=== PATIENT | female | born 2000 | race Caucasian/White ===

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

== ENCOUNTER 2020-10-12 19:26 | Emergency (ER) | payer OTHER ==
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
[2020-10-12] MEDS ORDERED: AZITHROMYCIN 500 MG TAB PO STA (22:35)
[2020-10-12] MEDS ORDERED: metroNIDAZOLE 500 MG TAB PO STA (22:35)
[2020-10-12] MEDS ORDERED: cefTRIAXone 1,000 MG VIAL (IM USE) IM STA (22:35)
[2020-10-12] MEDS ORDERED: levonorgestreL 1.5 MG TABLET PO STA (22:36)
[2020-10-12] MEDS ORDERED: EMTRICITABINE/TENOFOVIR (TDF) 1 EACH, RALTEGRAVIR POTASSIUM 400 MG PO ONE ×2 (22:45)
[2020-10-12 22:50] LABS: Amphetamine Screen,Urine Not Detected (NotDetected); Barbiturate Screen,Urine Not Detected (NotDetected); Benzodiazepines Screen,Urine Not Detected (NotDetected); Cocaine Screen,Urine Not Detected (NotDetected); Methadone Screen, Urine Not Detected (NotDetected); Opiate Screen,Urine Not Detected (NotDetected); Oxycodone Screen, Urine Not Detected (NotDetected); Phencyclidine Screen,Urine Not Detected (NotDetected); Tricyclic Antidepressant,Urine Not Detected (NotDetected); Urn Cannabinoid Scrn Detected (NotDetected)
[2020-10-13 04:04] VITALS: BP 127/91; PULSE 96; RESP 20; TEMP 98.4
== END 2020-10-13 04:04 | disposition home or self-care (01) ==
LOC: EC 19:26
DX: O9A.419 Sexual abuse complicating pregnancy, unspecified trimester (principal); O99.340 Other mental disorders complicating pregnancy, unspecified trimester; S50.811A Abrasion of right forearm, initial encounter; F32.9 Major depressive disorder, single episode, unspecified; K21.9 Gastro-esophageal reflux disease without esophagitis; Z91.011 Allergy to milk products; Z87.442 Personal history of urinary calculi; Z90.89 Acquired absence of other organs; Z3A.00 Weeks of gestation of pregnancy not specified; X58.XXXA Exposure to other specified factors, initial encounter; Y07.50 Unspecified non-family member, perpetrator of maltreatment and neglect
CPT/HCPCS: 99285; 96372; 82075; 81025; 80306; J0696

== ENCOUNTER 2024-08-29 10:35 | Emergency (ER) | payer OTHER ==
[2024-08-29 10:46] VITALS: TEMP 98
--- NOTE | 2024-08-29 11:31 | ED ---
General Adult HPI - General Chief complaint: Psychiatric Symptoms Stated complaint: Petition Time Seen by Provider: 08/29/24 10:40 Source: patient, RN notes reviewed, old records reviewed Mode of arrival: ambulatory - History of Present Illness Initial comments: This is a 24-year-old female who is brought in under a petition and a public address systems mechanic's order. Patient states the things in the petition are untrue she denies being suicidal or having been suicidal even yesterday. Patient states she followed up with a counselor yesterday so she does not feel like she has to be here. Patien t denies any alcohol use recently. Patient denies being even though on the petition it states that she thinks she is . Patient denies any physical complaints today but states that she has been urinating more often and thinks she might have urinary tract infection - Related Data Home Medications Medication Instructions Recorded Confirmed No Known Home Medications 08/29/24 08/29/24 Allergies Allergy/AdvReac Type Severity Reaction Status Date / Time wheat AdvReac Severe gastrointestinal Verified 08/29/24 12:55 distress Milk Containing Products AdvReac Mild gastrointestinal Verified 08/29/24 12:55 (Dairy) distress [Dairy] Review of Systems ROS Statement: Those systems with pertinent positive or pertinent negative responses have been documented in the HPI. ROS Other: All systems not noted in ROS Statement are negative. Past Medical History Past Medical History: GERD/Reflux, Seizure Disorder Additional Past Medical History / Comment(s): Celiac Disease, Irritible Bowel Syndrome, Vitamin D deficiency, Migrane, kidney stone History of Any Multi-Drug Resistant Organisms: None Reported Past Surgical History: Adenoidectomy, Section, Tonsillectomy Additional Past Surgical History / Comment(s): Leonidas ear tubes Past Anesthesia/Blood Transfusion Reactions: No Reported Reaction Past Psychological History: Depression Smoking Status: Current every day smoker Past Alcohol Use History: None Reported Past Drug Use History: None Reported - Past Family History Mother Family Medical History: Diabetes Mellitus, Hyperlipidemia, Hypertension Additional Family Medical History / Comment(s): Migraines General Exam - General Exam Comments Initial Comments: GENERAL: Patient is well-developed and well-nourished. Patient is nontoxic and well- hydrated and is in no acute distress. ENT: Neck is soft and supple. No significant lymphadenopathy is noted. Oropharynx is clear. Moist mucous membranes. Neck has full range of motion without eliciting any pain. EYES: The sclera were anicteric and conjunctiva were pink and moist. Extraocular movements were intact and pupils were equal round and reactive to light. Eyelids were unremarkable. PULMONARY: Unlabored respirations. Good breath sounds bilaterally. No audible rales rhonchi or wheezing was noted. CARDIOVASCULAR: There is a regular rate and rhythm without any murmurs gallops or rubs. ABDOMEN: Soft and nontender with normal bowel sounds. SKIN: Skin is clear with no lesions or rashes and otherwise unremarkable. NEUROLOGIC: Patient is alert and oriented x3. Cranial nerves II through XII are grossly intact. Motor and sensory are also intact. Normal speech, volume and content. Symmetrical smile. MUSCULOSKELETAL: Normal extremities with adequate strength and full range of motion. LYMPHATICS: No significant lymphadenopathy is noted PSYCHIATRIC: Patient denies suicidal homicidal ideations. Patient does not feel as though she needs to be here. Course Vital Signs 08/29/24 10:38 Temperature 98 F Pulse Rate 87 Respiratory 18 Rate Blood Pressure 123/79 O2 Sat by Pulse 100 Oximetry Medical Decision Making - Medical Decision Making Was pt. sent in by a medical professional or institution (D[facility]E [facility], STEAMFITTER APPRENTICE, urgent care, hospital, or [place] [facility] facility...) When possible be specific @ -No Did you speak to anyone other than the patient for history (EMS, parent, family, police, friend...)? What history was obtained from this source @ -No Did you review nursing and triage notes (agree or disagree)? Why? @ -I reviewed and agree with nursing and triage notes Were old charts reviewed (outside hosp., previous admission, EMS record, old EKG, old radiological studies, urgent care reports/EKG's, [place] [facility] facility records)? Report findings @ -No old charts were reviewed Differential Diagnosis? @ -Differential Mental Health Depression, anxiety, bipolar, psychosis, schizophrenia, borderline personality, situational depression, adjustment disorder, behavioral disorder, brain tumor, malingering, substance abuse, encephalopathy, medication reaction, dementia, hypothyroidism, degenerative neurologic disorder, lupus.... This is not meant to be all-inclusive list EKG interpreted by me (3pts min.). @ -As above X-rays interpreted by me (1pt min.). @ -None done CT interpreted by me (1pt min.). @ -None done U/S interpreted by me (1pt. min.). @ -None done What testing was considered but not performed or refused? (CT, X-rays, U/S, labs)? Why? @ -None What meds were considered but not given or refused? Why? @ -None Did you discuss the management of the patient with other professionals (professionals i.e. Dr., PA, STEAMFITTER APPRENTICE, lab, RT, psych nurse, social service assistant, professional athletes coach, teacher, parking control officer, embedded case manager)? Give summary @ -I spoke with the EPS nurse Was smoking cessation discussed for >3mins.? @ -No Was critical care preformed (if so, how long)? @ -No Were there social determinants of health that impacted care today? How? (Homelessness, low income, unemployed, alcoholism, drug addiction, transportation, low edu. Level, literacy, decrease access to med. care, halfway, rehab)? @ -No Was there de-escalation of care discussed even if they declined (Discuss DNR or withdrawal of care, Hospice)? DNR status @ -No What co-morbidities impacted this encounter? (DM, HTN, Smoking, COPD, CAD, Cancer, CVA, ARF, Chemo, Hep., AIDS, mental health diagnosis, sleep apnea, morbid obesity)? @ -None Was patient admitted / discharged? Hospital course, mention meds given and route, prescriptions, significant lab abnormalities, going to OR and other pertinent info. @ -EPS nurse spoke with the psychiatrist after speaking with the patient it was determined that the patient could go home with a safety plan and that was given to the patient and she will be discharged home. Patient did deny all statements in the petition by the . Undiagnosed new problem with uncertain prognosis? @ -No Drug Therapy requiring intensive monitoring for toxicity (Heparin, Nitro, Insulin, Cardizem)? @ -No Were any procedures done? @ -No Diagnosis/symptom? @ -Domestic problems Acute, or Chronic, or Acute on Chronic? @ -Acute Uncomplicated (without systemic symptoms) or Complicated (systemic symptoms)? @ -Complicated Side effects of treatment? @ -No Exacerbation, Progression, or Severe Exacerbation? @ -No Poses a threat to life or bodily function? How? (Chest pain, [place], [place], pneumonia, PE, COPD, DKA, ARF, appy, cholecystitis, CVA, Diverticulitis, Homicidal, Suicidal, threat to staff... and all critical care pts) @ -No - Lab Data Lab Results 08/29/24 08/29/24 Range/Units 11:21 11:21 Urine Color Yellow Urine Appearance Clear (Clear) Urine pH 6.5 (5.0-8.0) Ur Specific [place] 1.025 (1.001-1.035) Urine Protein Trace H (Negative) Urine Glucose (UA) Negative (Negative) Urine Ketones Negative (Negative) Urine Blood Negative (Negative) Urine Nitrite Negative (Negative) Urine Bilirubin Negative (Negative) Urine Urobilinogen 12.0 (<2.0) mg/dL Ur Leukocyte Esterase Small H (Negative) Urine RBC 3 (0-5) /hpf Urine WBC 16 H (0-5) /hpf Ur Squamous Epith Cells 5 H (0-4) /hpf Urine Mucus Occasional H (None) /hpf Urine HCG, Qual Not Detected (Not Detectd) Urine Opiates Screen Detected H (NotDetected) Ur Oxycodone Screen Not Detected (NotDetected) Urine Methadone Screen Not Detected (NotDetected) Ur Barbiturates Screen Not Detected (NotDetected) U Tricyclic Antidepress Not Detected (NotDetected) Ur Phencyclidine Scrn Not Detected (NotDetected) Ur Amphetamines Screen Not Detected (NotDetected) U Methamphetamines Scrn Not Detected (NotDetected) U Benzodiazepines Scrn Detected H (NotDetected) Urine Cocaine Screen Not Detected (NotDetected) U Marijuana (THC) Screen Detected H (NotDetected) Disposition Clinical Impression: Domestic problems Disposition: HOME SELF-CARE Instructions (If sedation given, give patient instructions): Depression (ED) Is patient prescribed a controlled substance at d/c from ED?: No Referrals: None,Stated [Primary Care Provider] - 1-2 days Time of Disposition: 14:17
[2024-08-29 11:41] LABS: Barbiturate Screen,Urine Not Detected (NotDetected); Benzodiazepines Screen,Urine Detected (NotDetected); Opiate Screen,Urine Detected (NotDetected); Oxycodone Screen, Urine Not Detected (NotDetected); Phencyclidine Screen,Urine Not Detected (NotDetected); Tricyclic Antidepressant,Urine Not Detected (NotDetected); Urn Cannabinoid Scrn Detected (NotDetected)
[2024-08-29 11:46] LABS: Bilirubin,Urine Negative (Negative); Blood,Urine Negative (Negative); Color,Urine Yellow; Glucose,Urine (UA) Negative (Negative); Ketones,Urine Negative (Negative); Leukocyte Esterase,Urine Small (Negative); Mucus,Urine Occasional /hpf; Nitrite,Urine Negative (Negative); PH, Urine 6.5 (5.0-8.0); Protein,Urine Trace (Negative); RBC,Urine 3 /hpf (0-5); Specific Gravity,Urine 1.025 (1.001-1.035); Squamous Epithelial Cell,Urine 5 /hpf (0-4); Urobilinogen,Urine 12.0 mg/dL (<2.0); WBC,Urine 16 /hpf (0-5)
[2024-08-29 14:38] VITALS: BP 118/69; PULSE 98; RESP 16
== END 2024-08-29 14:38 | disposition home or self-care (01) ==
LOC: EC 10:35
DX: Z63.0 Problems in relationship with spouse or partner (principal); F17.200 Nicotine dependence, unspecified, uncomplicated; Z91.011 Allergy to milk products; Z91.018 Allergy to other foods
CPT/HCPCS: 80306; 81001; 81025; 87086; 99285